=== PATIENT | male | born 1980 | race African-American/Black ===

== ENCOUNTER 2017-01-08 04:38 | Emergency (ER) | payer MEDICAID, OTHER, SELFPAY ==
[~2017-01-08] VITALS: Ht 182.9 cm; Wt 104.3 kg
[~2017-01-08 04:38] MED LIST: ALBU17IN2 INH; CLARITIN PO; PERC5TAB8 OR; VICODINES TAB OR
[2017-01-08 04:46] VITALS: BP 141/88
[2017-01-08] MEDS ORDERED: ZITHTAB PO (06:28)
--- NOTE | 2017-01-08 08:22 | REP ---
Portable chest: Single view. History: Cough. Comparison study: July 31, 2015. Findings: The lungs are well inflated and clear. Pleural angles are sharp. Heart size is normal. Pulmonary vasculature is not increased. No significant bony abnormality is seen. Impression: No active disease. Signed by Jourdan Morillo MD 01/08/2017 09:06 A
== END 2017-01-08 06:39 | disposition home or self-care (01) ==
LOC: M ED 05:07
DX: J20.9 Acute bronchitis, unspecified (principal); I10 Essential (primary) hypertension; J45.909 Unspecified asthma, uncomplicated; Z79.899 Other long term (current) drug therapy; F17.210 Nicotine dependence, cigarettes, uncomplicated

== ENCOUNTER 2017-05-29 15:27 | Emergency (ER) | payer SELFPAY ==
[~2017-05-29] VITALS: Ht 182.9 cm; Wt 109.1 kg
[~2017-05-29 15:27] MED LIST changes: +ZITHTAB PO
[2017-05-29] MEDS ORDERED: NS 1,000 ML IV ONE (16:30)
[2017-05-29] MEDS ORDERED: METOCLOPRAMIDE INJ 10MG/2ML VIAL (J2765) IV ONE (16:30)
[2017-05-29 18:33] VITALS: BP 135/81
== END 2017-05-29 18:36 | disposition home or self-care (01) ==
LOC: M ED 16:54
DX: R11.10 Vomiting, unspecified (principal); R19.7 Diarrhea, unspecified; J45.909 Unspecified asthma, uncomplicated; F17.200 Nicotine dependence, unspecified, uncomplicated; Z82.49 Family history of ischemic heart disease and other diseases of the circulatory system; Z82.3 Family history of stroke
CPT/HCPCS: 96374; 99283; J2765

== ENCOUNTER → 2017-06-09 | Outpatient (CLI) | payer MEDICAID, SELFPAY ==
[~2017-06-09] MED LIST changes: +BACT800T5 PO
== END ==
LOC: M OUTALCOH 08:28
PROVIDERS: ATTEND Psychiatry & Neurology Psychiatry
DX: Z13.9 Encounter for screening, unspecified (principal); F12.20 Cannabis dependence, uncomplicated

== ENCOUNTER 2017-06-28 14:32 | Emergency (ER) | payer MEDICAID, SELFPAY ==
[~2017-06-28] VITALS: Ht 182.9 cm; Wt 122.1 kg
[2017-06-28 14:32] VITALS: BP 143/94
[~2017-06-28 14:32] MED LIST changes: -BACT800T5 PO
[2017-06-28] MEDS ORDERED: BACT800T5 PO (16:42)
[2017-06-28] MEDS ORDERED: cefTRIAXone SOD 250 MG VIAL (J0696) IM ONE (16:45)
[2017-06-28] MEDS ORDERED: AZITHROMYCIN 250 MG TAB PO ONE (16:45)
[2017-06-28] MEDS ORDERED: BACTRIM 160MG/800MG DS TAB PO ONE (16:45)
== END 2017-06-28 17:01 | disposition home or self-care (01) ==
LOC: M ED 14:32
DX: Z20.2 Contact with and (suspected) exposure to infections with a predominantly sexual mode of transmission (principal); R36.9 Urethral discharge, unspecified; N39.0 Urinary tract infection, site not specified; I10 Essential (primary) hypertension
CPT/HCPCS: 81001; 87086; 87491; 87591; 96372; 99283; J0696

== ENCOUNTER → 2017-09-13 | Outpatient (REF) | payer OTHER ==
[~2017-09-13] MED LIST changes: +BACT800T5 PO
== END ==
LOC: M LAB REF 09:58
PROVIDERS: ATTEND Physician Assistant Surgical
DX: Z20.2 Contact with and (suspected) exposure to infections with a predominantly sexual mode of transmission (principal)

== ENCOUNTER → 2017-12-15 | Outpatient (REF) | payer OTHER ==
[2017-12-15 14:39] LABS: VALPROIC ACID (DEPAKOTE) 61.7 UG/ML (50.0-100.0)
== END ==
LOC: M LAB REF 13:58
DX: Z51.81 Encounter for therapeutic drug level monitoring (principal)
CPT/HCPCS: 80164

== ENCOUNTER → 2018-02-24 | Outpatient (CLI) | payer MEDICAID | LOC: M OUTALCOH 11:03 | DX: F12.20 Cannabis dependence, uncomplicated (principal); F17.201 Nicotine dependence, unspecified, in remission ==

== ENCOUNTER 2018-03-05 14:57 | Outpatient (RCR) | payer MEDICAID | END 2018-04-01 | LOC: M OUTALCOH 03-12 15:00 | DX: F12.20 Cannabis dependence, uncomplicated (principal); F17.200 Nicotine dependence, unspecified, uncomplicated ==

== ENCOUNTER → 2018-03-19 | Outpatient (CLI) | payer MEDICAID ==
[2018-03-19 17:08] LABS: ALBUMIN 3.8 GM/DL (3.2-5.2); ALBUMIN/GLOBULIN RATIO 1.03 (1.00-1.93); ALKALINE PHOSPHATASE 90 U/L (45-117); ALT/SGPT 35 U/L (12-78); AMYLASE 99 U/L (25-115); ANION GAP 5 MEQ/L (8-16); AST/SGOT 24 U/L (7-37); BILIRUBIN,TOTAL 0.6 MG/DL (0.2-1.0); BLOOD UREA NITROGEN 12 MG/DL (7-18); CALCIUM LEVEL 8.8 MG/DL (8.5-10.1); CARBON DIOXIDE LEVEL 28 MEQ/L (21-32); CHLORIDE LEVEL 110 MEQ/L (98-107); CREATININE FOR GFR 1.44 MG/DL (0.70-1.30); FREE T4 1.06 NG/DL (0.76-1.46); GLOMERULAR FILTRATION RATE > 60.0 (>60); GLUCOSE, FASTING 92 MG/DL (70-100); LIPASE 81 U/L (73-393); POTASSIUM SERUM 3.8 MEQ/L (3.5-5.1); SODIUM LEVEL 143 MEQ/L (136-145); THYROID STIMULATING HORMONE 0.882 uIU/ML (0.358-3.740); TOTAL PROTEIN 7.5 GM/DL (6.4-8.2)
[2018-03-19 17:38] LABS: BASO % 0.3 % (0.0-1.0); EOS # 0.4 10^3/uL (0.0-0.50); HEMATOCRIT 42.3 % (42.0-52.0); HEMOGLOBIN 14.8 g/dl (13.5-17.5); IMMATURE GRANULOCYTE % 0.3 % (0-3.0); LYMPH # 3.6 10^3/uL (1.5-4.5); LYMPH % 38.9 % (24.0-44.0); MEAN CORPUSCULAR HEMOGLOBIN 29.8 pg (27.0-33.0); MEAN CORPUSCULAR VOLUME 85.3 fl (80.0-96.0); MONO # 0.8 10^3/uL (0.0-0.8); MONO % 8.8 % (0.0-5.0); NEUTROPHILS # 4.4 10^3/uL (1.8-7.7); NEUTROPHILS % 47.7 % (36.0-66.0); PLATELET COUNT, AUTOMATED 290 10^3/uL (150-450); RED BLOOD COUNT 4.96 10^6/uL (4.30-6.10); WHITE BLOOD COUNT 9.3 10^3/uL (4.0-10.0)
== END ==
LOC: M WUC 14:37
DX: R10.816 Epigastric abdominal tenderness (principal)
CPT/HCPCS: 82150

== ENCOUNTER 2018-04-05 14:17 | Outpatient (RCR) | payer MEDICAID | END 2018-05-01 | LOC: M OUTALCOH 04-12 14:00 | DX: F12.20 Cannabis dependence, uncomplicated (principal); F17.200 Nicotine dependence, unspecified, uncomplicated ==

== ENCOUNTER 2018-05-03 11:34 | Outpatient (RCR) | payer MEDICAID | END 2018-06-01 | LOC: M OUTALCOH 05-07 15:00 | DX: F12.20 Cannabis dependence, uncomplicated (principal); F17.200 Nicotine dependence, unspecified, uncomplicated ==

== ENCOUNTER → 2018-05-14 | Outpatient (REF) | payer MEDICAID ==
[2018-05-14 17:47] LABS: BASO % 0.5 % (0.0-1.0); EOS # 0.4 10^3/uL (0.0-0.50); EOS % 5.3 % (0.0-3.0); HEMATOCRIT 45.8 % (42.0-52.0); HEMOGLOBIN 15.7 g/dl (13.5-17.5); IMMATURE GRANULOCYTE % 0.2 % (0-3.0); LYMPH # 3.4 10^3/uL (1.5-4.5); LYMPH % 41.5 % (24.0-44.0); MEAN CORPUSCULAR HEMOGLOBIN 29.8 pg (27.0-33.0); MEAN CORPUSCULAR HGB CONC 34.3 g/dl (32.0-36.5); MEAN CORPUSCULAR VOLUME 87.1 fl (80.0-96.0); MONO # 0.7 10^3/uL (0.0-0.8); MONO % 8.2 % (0.0-5.0); NEUTROPHILS # 3.6 10^3/uL (1.8-7.7); NEUTROPHILS % 44.3 % (36.0-66.0); PLATELET COUNT, AUTOMATED 264 10^3/uL (150-450); RED BLOOD COUNT 5.26 10^6/uL (4.30-6.10); RED CELL DISTRIBUTION WIDTH 13.3 % (11.5-14.5); WHITE BLOOD COUNT 8.2 10^3/uL (4.0-10.0)
[2018-05-14 18:09] LABS: ESTIMATED AVERAGE GLUCOSE 120 MG/DL (60-110); HEMOGLOBIN A1c 5.8 %
[2018-05-14 18:19] LABS: ALBUMIN 3.6 GM/DL (3.2-5.2); ALBUMIN/GLOBULIN RATIO 0.95 (1.00-1.93); ALKALINE PHOSPHATASE 110 U/L (45-117); ALT/SGPT 36 U/L (12-78); ANION GAP 8 MEQ/L (8-16); AST/SGOT 26 U/L (7-37); BILIRUBIN,TOTAL 0.4 MG/DL (0.2-1.0); BLOOD UREA NITROGEN 12 MG/DL (7-18); CALCIUM LEVEL 8.5 MG/DL (8.5-10.1); CARBON DIOXIDE LEVEL 29 MEQ/L (21-32); CHLORIDE LEVEL 107 MEQ/L (98-107); CREATININE FOR GFR 1.34 MG/DL (0.70-1.30); GLOMERULAR FILTRATION RATE > 60.0 (>60); GLUCOSE, FASTING 68 MG/DL (70-100); POTASSIUM SERUM 3.8 MEQ/L (3.5-5.1); SODIUM LEVEL 144 MEQ/L (136-145); TOTAL PROTEIN 7.4 GM/DL (6.4-8.2)
== END ==
LOC: M LAB REF 16:43
DX: R42 Dizziness and giddiness (principal); R63.5 Abnormal weight gain

== ENCOUNTER → 2018-07-12 | Outpatient (REF) | payer MEDICAID ==
[2018-07-12 14:18] LABS: CHLAMYDIA DNA AMPLIFICATION NEGATIVE (NEGATIVE); GC DNA AMPLIFICATION POSITIVE (NEGATIVE)
== END ==
LOC: M LAB REF 12:08
DX: R30.0 Dysuria (principal)

== ENCOUNTER → 2019-08-09 | Outpatient (CLI) | payer MEDICAID, SELFPAY | LOC: M OUTALCOH 07:57 | PROVIDERS: ATTEND Psychiatry & Neurology Psychiatry | DX: Z13.39 Encounter for screening examination for other mental health and behavioral disorders (principal); F14.10 Cocaine abuse, uncomplicated; F12.20 Cannabis dependence, uncomplicated ==

== ENCOUNTER → 2019-08-22 | Outpatient (REF) | payer MEDICAID, SELFPAY ==
[2019-08-23 09:33] LABS: CHLAMYDIA DNA AMPLIFICATION POSITIVE (NEGATIVE); GC DNA AMPLIFICATION NEGATIVE (NEGATIVE)
== END ==
LOC: M LAB REF 10:27
PROVIDERS: ATTEND Physician Assistant Medical
DX: Z11.3 Encounter for screening for infections with a predominantly sexual mode of transmission (principal)

== ENCOUNTER 2019-09-26 08:45 | Outpatient (RCR) | payer SELFPAY | END 2019-10-01 | LOC: M OUTALCOH 08:45 | PROVIDERS: ATTEND Psychiatry & Neurology Psychiatry | DX: F12.20 Cannabis dependence, uncomplicated (principal); F17.200 Nicotine dependence, unspecified, uncomplicated; F13.20 Sedative, hypnotic or anxiolytic dependence, uncomplicated; F14.10 Cocaine abuse, uncomplicated ==

== ENCOUNTER 2019-10-25 12:54 | Outpatient (RCR) | payer SELFPAY | END 2019-11-01 | LOC: M OUTALCOH 12:54 | PROVIDERS: ATTEND Psychiatry & Neurology Psychiatry | DX: F12.20 Cannabis dependence, uncomplicated (principal); F13.20 Sedative, hypnotic or anxiolytic dependence, uncomplicated; F14.10 Cocaine abuse, uncomplicated; F17.200 Nicotine dependence, unspecified, uncomplicated ==

== ENCOUNTER 2019-11-28 08:45 | Outpatient (RCR) | payer MEDICAID, SELFPAY | END 2019-12-02 | LOC: M OUTALCOH 08:45 | PROVIDERS: ATTEND Psychiatry & Neurology Psychiatry | DX: F12.20 Cannabis dependence, uncomplicated (principal); F13.20 Sedative, hypnotic or anxiolytic dependence, uncomplicated; F14.10 Cocaine abuse, uncomplicated; F17.200 Nicotine dependence, unspecified, uncomplicated ==

== ENCOUNTER 2019-12-21 08:45 | Outpatient (RCR) | payer MEDICAID, SELFPAY | END 2019-12-31 | LOC: M OUTALCOH 08:45 | PROVIDERS: ATTEND Psychiatry & Neurology Addiction Medicine | DX: F12.20 Cannabis dependence, uncomplicated (principal); F17.200 Nicotine dependence, unspecified, uncomplicated; F13.20 Sedative, hypnotic or anxiolytic dependence, uncomplicated; F14.20 Cocaine dependence, uncomplicated ==

== ENCOUNTER 2020-05-01 20:55 | Emergency (ER) | payer MEDICAID, SELFPAY ==
[~2020-05-01] VITALS: Ht 182.9 cm; Wt 131.1 kg
[2020-05-01 22:00] VITALS: BP 132/87
[2020-05-02] MEDS ORDERED: PROAAER10 INH (01:36)
[2020-05-02] MEDS ORDERED: LIDOCAINE 2% 100MG/5ML SDV (FOR ANES.) As Ordered ONE (02:07)
[2020-05-02] MEDS ORDERED: propofoL 200 MG/20 ML VIAL As Ordered ONE (02:07)
[2020-05-02] MEDS ORDERED: ROCURONIUM BROMIDE 50 MG/5 ML VIAL As Ordered ONE (02:07)
[2020-05-02] MEDS ORDERED: NORC1TAB7 PO (04:11)
[2020-05-02] MEDS ORDERED: AUGM875T28 PO (04:11)
== END 2020-05-01 22:10 | disposition left against medical advice (07) ==
LOC: M ED 20:55
DX: Z53.21 Procedure and treatment not carried out due to patient leaving prior to being seen by health care provider (principal)

== ENCOUNTER 2020-05-01 22:57 | Day surgery (SDC) | payer MEDICAID, OTHER ==
[~2020-05-01] VITALS: Ht 182.9 cm; Wt 122.7 kg
[2020-05-02] MEDS ORDERED: ceFAZolin SOD 2 GM in IV 1 EA IV ONE ×2
[2020-05-02] MEDS ORDERED: PROPOFOL 1,000 MG/100 ML VIAL As Ordered ONE (00:47)
[2020-05-02] MEDS ORDERED: propofoL 200 MG/20 ML VIAL IV ONE (01:30)
[2020-05-02] MEDS ORDERED: PROAAER10 INH (01:36)
[2020-05-02] MEDS ORDERED: fentaNYL 100 MCG/2 ML INJECTION (J3010) As Ordered ONE ×2 (02:08→03:45)
[2020-05-02] MEDS ORDERED: propofoL 200 MG/20 ML VIAL As Ordered ONE (02:09)
[2020-05-02] MEDS ORDERED: dexameTHASONE 4 MG/ML 1ML VIAL (J1100 PER 1MG) As Ordered ONE (02:09)
[2020-05-02] MEDS ORDERED: ONDANSETRON 4MG/2ML VIAL As Ordered ONE (02:09)
[2020-05-02] MEDS ORDERED: MIDAZOLAM INJ 2MG/2ML VIAL (J2250 PER 1MG) As Ordered ONE (02:09)
[2020-05-02] MEDS ORDERED: ROCURONIUM BROMIDE 50 MG/5 ML VIAL As Ordered ONE (02:09)
[2020-05-02] MEDS ORDERED: LIDOCAINE 2% 100MG/5ML SDV (FOR ANES.) As Ordered ONE (02:09)
[2020-05-02 03:02] LABS: HEMOGLOBIN 12.5 g/dl (13.5-17.5); MEAN CORPUSCULAR HEMOGLOBIN 30.6 pg (27.0-33.0); MEAN CORPUSCULAR HGB CONC 34.7 g/dl (32.0-36.5); PLATELET COUNT, AUTOMATED 242 10^3/uL (150-450); RED BLOOD COUNT 4.09 10^6/uL (4.30-6.10); WHITE BLOOD COUNT 13.5 10^3/uL (4.0-10.0)
[2020-05-02] MEDS ORDERED: BUPIVACAINE HCL 0.25% 30ML VIAL As Ordered ONE (03:09)
[2020-05-02] MEDS ORDERED: PHENYLephrine HCL 500 MCG/5 ML (100MCG/ML) SYRINGE (J2370) As Ordered ONE ×2 (03:13→03:28)
[2020-05-02] MEDS ORDERED: ACETAMINOPHEN 1000MG 100ML IV BTL (OFIRMEV) (J0131 PER 10MG) As Ordered ONE (03:24)
[2020-05-02] MEDS ORDERED: SUGAMMADEX SODIUM 500 MG/5 ML VIAL (BRIDION) As Ordered ONE (03:30)
[2020-05-02] MEDS ORDERED: AUGM875T28 PO (04:11)
[2020-05-02] MEDS ORDERED: NORC1TAB7 PO (04:11)
[2020-05-02] MEDS ORDERED: ALBUTEROL 6.7GM INHALER **FOR ANES. CART/OMNICELL ONLY As Ordered ONE (04:21)
[2020-05-02] MEDS ORDERED: fentaNYL 100 MCG/2 ML INJECTION (J3010) IV PRN (04:30)
[2020-05-02] MEDS ORDERED: LR 1,000 ML IV SCH (04:30)
[2020-05-02] MEDS ORDERED: ONDANSETRON 4MG/2ML VIAL IV PRN (04:30)
[2020-05-02 04:39] VITALS: BP 123/65
[2020-05-02] MEDS ORDERED: oxyCODONE 5MG TAB As Ordered ONE (04:44)
[2020-05-02] MEDS ORDERED: KETOROLAC 30 MG/ML 1ML VIAL As Ordered ONE (04:44)
[2020-05-02] MEDS ORDERED: KETOROLAC 30 MG/ML 1ML VIAL IV PRN (05:00)
[2020-05-02] MEDS ORDERED: oxyCODONE 5MG TAB PO PRN (05:00)
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
== END 2020-05-02 05:10 | disposition home or self-care (01) ==
LOC: M ED 22:57 → M SDC 22:58 → ENRESERV 05-02 03:35 → M MSPAV 05-02 04:56 → M SDC 05-02 05:10
PROVIDERS: ATTEND Surgery
DX: S81.812A Laceration without foreign body, left lower leg, initial encounter (principal); S61.411A Laceration without foreign body of right hand, initial encounter; X99.1XXA Assault by knife, initial encounter; Y92.89 Other specified places as the place of occurrence of the external cause; Y93.9 Activity, unspecified; Y99.9 Unspecified external cause status; I10 Essential (primary) hypertension; J45.909 Unspecified asthma, uncomplicated; F17.218 Nicotine dependence, cigarettes, with other nicotine-induced disorders; E66.9 Obesity, unspecified; Z79.899 Other long term (current) drug therapy
CPT/HCPCS: 12002; 13121; 13122; 85027; 86850; 86900; 86901; 96365; 96375; 99285; J0131; J0690; J1100; J1885; J2250; J2370; J2405; J3010; U0002

== ENCOUNTER → 2020-06-25 | Outpatient (CLI) | payer MEDICAID ==
[~2020-06-25] MED LIST changes: +AUGM875T28 PO; +NORC1TAB7 PO; +PROAAER10 INH
== END ==
LOC: M OUTALCOH 07:51
PROVIDERS: ATTEND Psychiatry & Neurology Addiction Medicine
DX: Z13.39 Encounter for screening examination for other mental health and behavioral disorders (principal)

== ENCOUNTER 2024-09-23 08:26 | Emergency (ER) | payer MEDICAID, OTHER ==
[~2024-09-23] VITALS: Ht 182.9 cm; Wt 119.2 kg
[2024-09-23] MEDS: ONDANSETRON 4MG 2ML VIAL IV ONE (09:13)
[2024-09-23] MEDS: ACETAMINOPHEN 325MG/10.15ML UDC PO ONE (09:13)
[2024-09-23 09:44] LABS: RED BLOOD COUNT 5.06 10^6/uL (4.30-6.10); WHITE BLOOD COUNT 5.5 10^3/uL (4.0-10.0)
[2024-09-23 09:45] LABS: BASO % 0.2 % (0.0-1.0); EOS # 0.4 10^3/uL (0.0-0.5); EOS % 7.1 % (0.0-3.0); HEMATOCRIT 44.2 % (42.0-52.0); HEMOGLOBIN 15.5 g/dl (13.5-17.5); LYMPH # 0.7 10^3/uL (1.5-5.0); LYMPH % 11.8 % (24.0-44.0); MEAN CORPUSCULAR HEMOGLOBIN 30.6 pg (27.0-33.0); MEAN CORPUSCULAR HGB CONC 35.1 g/dl (32.0-36.5); MEAN CORPUSCULAR VOLUME 87.4 fl (80.0-96.0); MONO # 0.9 10^3/uL (0.0-0.8); MONO % 17.1 % (2.0-8.0); NEUTROPHILS # 3.5 10^3/uL (1.5-8.5); NEUTROPHILS % 63.4 % (36.0-66.0); PLATELET COUNT, AUTOMATED 208 10^3/uL (150-450)
[2024-09-23 09:47] LABS: KETONE, URINE AUTO RFX NEGATIVE (NEGATIVE); NITRITE, URINE AUTO RFX NEGATIVE (NEGATIVE); RBC, URINE AUTO RFX 8 /HPF (0-3); SQUAM EPITHELIAL CELL UR AURFX 2 /HPF (0-6); WBC, URINE AUTO RFX 5 /HPF (0-3)
[2024-09-23 09:48] LABS: LEUKOCYTE ESTERASE UR AUTO RFX TRACE (NEGATIVE)
[2024-09-23 10:08] LABS: AMPHETAMINES LEVEL URINE NEGATIVE (NEGATIVE)
[2024-09-23 10:09] LABS: BARBITURATES URINE NEGATIVE (NEGATIVE); BENZODIAZEPINES URINE NEGATIVE (NEGATIVE); COCAINE METABOLITE URINE NEGATIVE (NEGATIVE); METHADONE URINE NEGATIVE (NEGATIVE); OPIATES URINE NEGATIVE (NEGATIVE); PHENCYCLIDINE URINE NEGATIVE (NEGATIVE)
[2024-09-23 10:13] LABS: ALBUMIN 3.6 G/DL (3.2-5.2); ALKALINE PHOSPHATASE 88 U/L (40-129); ALT/SGPT 37 U/L (7.0-40); AST/SGOT 29 U/L (<34); BILIRUBIN,DIRECT 0.2 MG/DL (<0.4); BILIRUBIN,TOTAL 0.5 MG/DL (0.3-1.2); BLOOD UREA NITROGEN 10 MG/DL (9-23); CALCIUM LEVEL 8.9 MG/DL (8.5-10.1); CARBON DIOXIDE LEVEL 28 MMOL/L (20-31); CHLORIDE LEVEL 103 MMOL/L (98-107); CREATININE FOR GFR 1.44 MG/DL (0.70-1.30); GLOMERULAR FILTRATION RATE > 60.0 (>60); GLUCOSE, FASTING 102 MG/DL (60-100); POTASSIUM SERUM 4.1 MMOL/L (3.5-5.1); RHEUMATOID FACTOR QUANT 5.2 IU/ML (<14); SODIUM LEVEL 137 MMOL/L (136-145); TOTAL PROTEIN 7.8 G/DL (5.7-8.2)
[2024-09-23 10:14] LABS: CANNABINOIDS URINE POSITIVE (NEGATIVE)
[2024-09-23 10:45] LABS: HIV 1&2 SCREEN NEGATIVE (NEGATIVE)
[2024-09-23 10:52] LABS: Trichomonas vaginalis (AMP) NOT DETECTED (NEGATIVE)
[2024-09-23 11:16] LABS: GC DNA AMPLIFICATION NEGATIVE (NEGATIVE)
[2024-09-23 14:30] VITALS: BP 144/90; O2SAT 96
[2024-09-23] MEDS ORDERED: NYST-38 PO (14:48)
[2024-09-23 14:53] VITALS: TEMP 101.1
[2024-09-27 12:57] LABS: ANA PATTERN Nuclear, Nucleolar (NEGATIVE); ANA SCREEN, IFA POSITIVE (NEGATIVE)
== END 2024-09-23 14:59 | disposition home or self-care (01) ==
LOC: M ED 08:26 → EDBD 08:26 → M ED 14:59
DX: B37.0 Candidal stomatitis (principal); B37.81 Candidal esophagitis; F41.9 Anxiety disorder, unspecified; I10 Essential (primary) hypertension; J45.909 Unspecified asthma, uncomplicated; Z79.1 Long term (current) use of non-steroidal anti-inflammatories (NSAID)
CPT/HCPCS: 80048; 80076; 80307; 81001; 85025; 86038; 86039; 86431; 86780; 87040; 87086; 87389; 87486; 87581; 87633; 87661; 87798; 87810; 87850; 96374; 99285; J2405